=== PATIENT | female | born 1980 | race American Indian/Alaskan Native ===

== ENCOUNTER 2020-06-17 06:13 | Day surgery (SDC) | payer OTHER ==
[2020-06-17 07:59] LABS: Basophils # (Auto) 0.1 K/mm3 (0.0-0.1); Basophils % (Auto) 1.1 % (0.0-1.8); Eosinophils # (Auto) 0.1 K/mm3 (0.0-0.4); Eosinophils % (Auto) 2.9 % (0.0-4.3); Hemoglobin 11.8 gm/dl (10.1-14.3); Lymphocytes # (Auto) 1.7 K/mm3 (1.2-5.4); Lymphocytes % (Auto) 31.8 % (13.4-35.0); Mean Corpuscular HGB Conc 33 % (30-34); Mean Corpuscular Volume 82 fl (79-97); Monocytes # (Auto) 0.4 K/mm3 (0.0-0.8); Platelet Count 313 K/mm3 (140-440); Red Cell Distribution Width 13.8 % (13.2-15.2)
[2020-06-17 08:05] LABS: INR 1.12 (0.87-1.13)
[2020-06-17 08:06] LABS: Partial Thromboplastin Time 27.5 Sec. (24.2-36.6)
[2020-06-17 08:09] LABS: Blood Urea Nitrogen 7 mg/dL (7-17); Hemolysis Index 14
[2020-06-17 08:13] LABS: BUN/Creatinine Ratio 12
[2020-06-17] MEDS: SODIUM CHLORIDE 0.9% 500 ML 500 ML IV SCH ×2 (08:13→09:58)
[2020-06-17] MEDS ORDERED: HEPARIN 10,000 UNITS/10 ML VIAL ONE (08:43)
[2020-06-17] MEDS ORDERED: HEPARIN/NS 5000 UNIT/500ML 1,000 ML IR ONE (08:43)
[2020-06-17] MEDS: LIDOCAINE 1%/EPINEPHRINE 1:100,000 VIAL (20 ML) INFILTRATI ONE ×2 (09:10→09:57)
[2020-06-17] MEDS: MIDAZOLAM 2 MG/2 ML INJ ONE ×3 (09:57→10:11)
[2020-06-17] MEDS: fentaNYL 100 MCG/2 ML INJ ONE ×4 (09:57→10:22)
[2020-06-17] MEDS ORDERED: ceFAZolin/Water 2 GM/20 ML 2 GM/20 ML SYRINGE IV ONE (10:07)
[2020-06-17] MEDS ORDERED: MIDAZOLAM 2 MG/2 ML INJ ONE (10:19)
--- NOTE | 2020-06-17 11:05 | Short Stay Summary ---
Short Stay Documentation Date of service: 06/17/20 Narrative H&P: 39 year old female with submassive pulmonary embolism s/p thrombolysis and IVC filter placement who presents for IVC filter removal - History Principal diagnosis: IVC filter H&P: obtained from office - Allergies and Medications Current Medications: Allergies No Known Allergies Allergy (Verified 02/12/20 22:20) Home Medications Medication Instructions Recorded Confirmed Last Taken Type Apixaban [Eliquis] 5 mg PO Q12HR #60 tablet 02/16/20 06/17/20 06/16/20 Rx 5 mg metFORMIN [Glucophage] 500 mg PO BID 06/17/20 06/17/20 06/16/20 History 500 mg Active Medications Sodium Chloride (Nacl 0.9% 500 Ml) 500 mls @ 50 mls/hr IV DIRECT BRE Last Admin: 06/17/20 09:58 Dose: 50 mls/hr Documented by: - Physical exam General appearance: no acute distress HEENT: EOMI Lungs: Normal air movement Heart: Regular rate Gastrointestinal: normal Extremities: normal temperature, normal color - Brief post op/procedure progress note Date of procedure: 06/17/20 Pre-op diagnosis: IVC filter, no longer needed, PE Post-op diagnosis: same Procedure: 1. Ultrasound-guided access of the right internal jugular vein. 2. Selection of the IVC with venography. 3. Successful IVC filter removal under fluoroscopic guidance using loop snare technique Anesthesia: local (With conscious sedation) Surgeon: GABRIELA DC Estimated blood loss: minimal Condition: stable - Hospital course Hospital course: Patient tolerated the procedure well. No immediate postprocedural complication. Patient will need to be HOB 60 to 90 degrees for the next 8 hours. Do not lay flat for the next 8 hours. - Disposition Condition at discharge: Stable Disposition: [id number] TO HOME OR SELFCARE - Discharge Diagnoses (1) Presence of IVC filter Status: Acute (2) Diabetes Status: Acute (3) Saddle pulmonary embolus Status: Acute Short Stay Discharge Plan Activity: advance as tolerated Weight Bearing Status: Weight Bear as Tolerated (Do not lift more than 10 pounds for 1 week) Diet: diabetic Wound: keep clean and dry (Do not scrub area for 1 week. Allow glue to fall off on its own.) Special Instructions: other (Must keep head of bed at 60 to 90 degrees for the next 8 hours, do not lay flat for the next 8 hours) Follow up with: PRIMARY CARE, [Primary Care Provider] - 7 Days
--- NOTE | 2020-06-17 11:06 | Operative Report ---
Operative Report Operative Report: EXAM: 1. Ultrasound-guided access of the right internal jugular vein. 2. Selection of the IVC with venography. 3. Successful IVC filter removal under fluoroscopic guidance using loop snare technique DATE: 06/17/2020 INDICATION: Submassive pulmonary embolism status post thrombolysis and IVC filter placement and patient who presents for IVC filter removal. This attempt will be using complex methods which was discussed with the patient. MEDICATIONS: Continuous cardiopulmonary monitoring was performed during this procedure. Please review the nursing record for a list of all medications. DEVICES: Argon trilobed snare retrieval kit Removed, retrievable Bard Ele IVC filter. TERRA COTTA ROOFER: GABRIELA DC MD CONTRAST: Please see catheter report for full details. PROCEDURE: The risks, benefits, and alternatives were discussed; written informed consent was obtained. The patient was transported to the angiography suite in stable condition. The patient was transported on the table and the right internal jugular was assessed with ultrasound to ensure patency. The patient was prepped and draped in a sterile fashion. The right internal jugular vein was accessed with an 21-gauge needle under direct ultrasound guidance. 0.018 inch wire was advanced through the needle and the needle was exchanged for a transitional dilation. Inner dilator and wire was removed. 0.035 inch wire was passed into the inferior vena cava. The transitional dilator was exchanged for a 5 Cambodian sheath and a 5 Cambodian Omni Flush catheter was advanced over the wire and passed into the inferior vena cava. Digital subtraction venography was performed. The patient was heparinized. The flush catheter was removed over a 0.035 inch Amplatz wire and the sheath was removed over the wire. Serial dilatation was performed and ultimate placement of a 16 Camb[place]ian Cook sheath was placed. Sheath was placed above the IVC filter. Omni Flush catheter was readvanced over the wire and used to engage the Ashe IVC filter and a 0.035 inch Glidewire was then passed. Argon trilobed snare was passed next to the Omni Flush catheter in the 16 Cambodian sheath and the snare was used to snare the Glidewire creating a loop snare. Wire was externalized and the argon retrieval sheaths were passed coaxially over the Cook sheath and using a trisheath system, the Ele IVC filter was collapsed and subsequently removed without issue. The filter was removed intact. Digital subtraction angiography was performed to the sheath demonstrating a tiny filling defect in the IVC. This is compatible with a small amount of either scar or thrombus. Patient will need continued anticoagulation but this should resolve with medical treatment alone. 4-0 Vicryl was used to close the venotomy site. Pressure was held until hemostasis was achieved. Dermabond applied. Sterile dressing and pressure dressing applied. The patient was transferred from the angiography suite in stable condition. FINDINGS: 1. Under direct ultrasound guidance, the right internal jugular vein was accessed with a 21-gauge needle. 2. Digital subtraction venography of the inferior vena cava demonstrates no evidence of inferior vena cava thrombus. There is a small filling defect of the tip of the IVC filter. The inferior vena cava is normal in size. Renal vein inflow is visualized. 3. Bard Ele IVC filter was successfully removed. 4. Digital subtraction angiography was performed to the sheath demonstrating a tiny filling defect in the IVC. This is compatible with a small amount of either scar or thrombus. Patient will need continued anticoagulation but this should resolve with medical treatment alone. IMPRESSION: Successful removal of the indwelling Bard Ele IVC filter.
[2020-06-17] MEDS ORDERED: APIXABAN 5 MG TAB ONE (11:30)
[2020-06-17] MEDS ORDERED: APIXABAN 5 MG TAB PO ONE (11:42)
[2020-06-17] MEDS ORDERED: HYDROcodone/ACETAMINOPHEN 5-325 MG TAB PO ONE (13:00)
[2020-06-17 13:35] VITALS: BP 145/85
== END 2020-06-17 14:30 | disposition home or self-care (01) ==
LOC: CATHLABREC 06:13
PROVIDERS: ATTEND Radiology Diagnostic Radiology
DX: Z45.2 Encounter for adjustment and management of vascular access device (principal); I26.99 Other pulmonary embolism without acute cor pulmonale; I26.92 Saddle embolus of pulmonary artery without acute cor pulmonale; J45.909 Unspecified asthma, uncomplicated; E11.9 Type 2 diabetes mellitus without complications; Z86.718 Personal history of other venous thrombosis and embolism; Z79.899 Other long term (current) drug therapy; Z79.84 Long term (current) use of oral hypoglycemic drugs; Z98.890 Other specified postprocedural states; Z79.01 Long term (current) use of anticoagulants
CPT/HCPCS: 36415; 37193; 80048; 85025; 85610; 85730; 99156; 99157; C1769; C1887; J0690; J1644; J2250; J3010; J7040; 76937; Q9967